=== PATIENT | male | born 2000 | race Caucasian/White ===

== ENCOUNTER 2021-03-02 15:21 | Emergency (ER) | payer OTHER ==
[~2021-03-02] VITALS: Ht 167.6 cm; Wt 94.3 kg
--- NOTE | 2021-03-02 15:55 | NUR ---
Triage call x1
[2021-03-02 16:07] VITALS: BP 133/79
--- NOTE | 2021-03-02 17:52 | NUR ---
Pt ambulated to Chair A.
[2021-03-02] MEDS ORDERED: KETOROLAC 30 MG/ML VIAL IM ONE (17:55)
--- NOTE | 2021-03-02 19:10 | NUR ---
results back and noted by lanny Cardozo and for d/c
[2021-03-02] MEDS ORDERED: NAPR-54 PO (19:21)
[2021-03-02 19:40] VITALS: BP 129/63
== END 2021-03-02 19:40 | disposition home or self-care (01) ==
LOC: MED 15:21
DX: S02.2XXA Fracture of nasal bones, initial encounter for closed fracture (principal); S02.401A Maxillary fracture, unspecified side, initial encounter for closed fracture; Z79.899 Other long term (current) drug therapy; Y04.2XXA Assault by strike against or bumped into by another person, initial encounter; Y93.89 Activity, other specified; Y92.89 Other specified places as the place of occurrence of the external cause; Y99.8 Other external cause status
CPT/HCPCS: 70160; 70486; 96372; 99284; J1885

== ENCOUNTER 2021-04-24 09:01 | Emergency (ER) | payer OTHER ==
[~2021-04-24] VITALS: Ht 167.6 cm; Wt 90.7 kg
[~2021-04-24 09:01] MED LIST: NAPR-54 PO
[2021-04-24 09:05] VITALS: BP 144/85
--- NOTE | 2021-04-24 09:20 | NUR ---
21 y/o M BIB self from home c/o nausea and abdominal pain +black tarry stools. Patient A&Ox4, ambulatory reports seen at [facility] yesterday and diagnosed with gastritis. Patient reports epigastric pain 8/10, burning/constant, non-radiating that worsens after eating meals. Patient states taking prescribed Zofran and Pepcid without relief to pain. Patient states Ibuprofen 3 days ago and Tylenol 1,500mg last night without relief. Patient states last BM: this morning, 1 episode of black tarry stool in which he called the nurse hotline who advised to go to ER for evaluation. Patient denies any pain medications today. Denies vomiting, chest pain, back pain, dysuria, urinary symptoms. Pt placed into a gown and UA collected. Bed locked in lowest position, side rails x 1, call light in reach. PMH: gastritis Meds: Zofran, pepcid NKA Sx: denies
--- NOTE | 2021-04-24 09:20 | NUR ---
Patient ambulated to bed 04 with steady/even gait.
[2021-04-24] MEDS ORDERED: ONDANSETRON 4 MG/2 ML VIAL IVP ONE (09:25)
[2021-04-24] MEDS ORDERED: ALUMINUM HYD/MAG/SIMETHICONE 30 ML UDC PO ONE (09:25)
[2021-04-24] MEDS ORDERED: FAMOTIDINE 20 MG/2 ML VIAL IVP ONE (09:25)
--- NOTE | 2021-04-24 09:29 | NUR ---
Dr. Plasencia is evaluating patient at bedside
--- NOTE | 2021-04-24 09:42 | NUR ---
Patient transported to [facility] by WC
--- NOTE | 2021-04-24 09:45 | NUR ---
Blood sample collected, walked to lab and handed to CPT. Chepe
--- NOTE | 2021-04-24 09:58 | NUR ---
Patient returned from RAD by WC
[2021-04-24 10:15] LABS: BASOPHILS % (AUTO) 0.8 % (0.0-2.0); EOSINOPHILS # (AUTO) 0.1 K/uL (0-0.4); EOSINOPHILS % (AUTO) 2.8 % (0.0-4.0); HEMATOCRIT 44.4 % (36-52); HEMOGLOBIN 15.2 g/dL (12.0-18.0); LYMPHOCYTES # (AUTO) 2.1 K/uL (2.0-11.5); LYMPHOCYTES % (AUTO) 42.2 % (20.5-51.1); MEAN CORPUSCULAR HEMOGLOBIN 29 pg (27-31); MEAN CORPUSCULAR HGB CONC 34 g/dL (33-37); MEAN CORPUSCULAR VOLUME 85.4 fL (80-94); MONOCYTES # (AUTO) 0.4 K/uL (0.8-1.0); MONOCYTES % (AUTO) 8.3 % (1.7-9.3); NEUTROPHILS # (AUTO) 2.3 K/uL (1.8-7.7); NEUTROPHILS % (AUTO) 45.9 % (42.2-75.2); PLATELET COUNT (AUTO) 245 K/uL (140-450); RED CELL DISTRIBUTION WIDTH 12.9 % (11.6-13.7)
[2021-04-24 10:30] LABS: ANION GAP 14.5 (8-16); CARBON DIOXIDE 26.6 mmol/L (21-32); POTASSIUM 4.1 mmol/L (3.5-5.1); TOTAL BILIRUBIN 0.6 mg/dL (0.0-1.0)
[2021-04-24 10:31] LABS: ALBUMIN 4.4 g/dL (3.4-5.0)
--- NOTE | 2021-04-24 10:42 | NUR ---
Dr. Plasencia reevaluating patient at bedside
--- NOTE | 2021-04-24 11:04 | NUR ---
Patient resting in position of comfort. States no nausea at this time; pain 7/10. All pt needs met. Significant other remains at bedside. VSS; respirations even/unlabored.
[2021-04-24 11:12] VITALS: BP 137/78
[2021-04-24] MEDS ORDERED: MAG355OR2 PO (11:37)
[2021-04-24] MEDS ORDERED: LOPE1TAB14 PO (11:37)
--- NOTE | 2021-04-24 11:47 | NUR ---
Patient discharged with v/s stable. Written and verbal after care instructions given and explained. Patient alert, oriented and verbalized understanding of instructions. Ambulatory with steady gait. All questions addressed prior to discharge. ID band removed. Patient advised to follow up with PMD. Rx of Maalox Maximum Strength Supsension, Imodium Multi-Symptom Rel Cplt given. Patient educated on indication of medication including possible reaction and side effects. Opportunity to ask questions provided and answered.
== END 2021-04-24 11:47 | disposition home or self-care (01) ==
LOC: MED 09:01
DX: R10.13 Epigastric pain (principal); R11.0 Nausea; R19.7 Diarrhea, unspecified
CPT/HCPCS: 36415; 74022; 80053; 83690; 85025; 96374; 96375; 99284; J2405; J3490

== ENCOUNTER 2021-08-12 09:30 | Emergency (ER) | payer OTHER ==
[~2021-08-12] VITALS: Ht 167.6 cm; Wt 90.7 kg
[~2021-08-12 09:30] MED LIST changes: +LOPE1TAB14 PO; +MAG355OR2 PO
[2021-08-12 10:10] VITALS: BP 123/74
[2021-08-12] MEDS ORDERED: KETOROLAC 60 MG/2 ML VIAL IM ONE (11:05)
[2021-08-12] MEDS ORDERED: ONDA8TAB87 PO (11:48)
[2021-08-12] MEDS ORDERED: IBUP-2213 PO (11:48)
--- NOTE | 2021-08-12 11:51 | NUR ---
21/M BIB SELF WITH C/O BLOOD IN STOOL THIS MORNING. PATIENT REPORTS INTERMITTENT ABDOMINAL PAIN "FOR YEARS" BUT STATES HE HAS NOT FOLLOWED UP WITH A GI DOCTOR. PATIENT C/O 7 PAIN THAT IS UNPROVOKED, REPORTS NAUSEA AND DIARRHEA. DENIES VOMITING, CP OR URINARY SYMPTOMS.
[2021-08-12 11:55] VITALS: BP 123/74
--- NOTE | 2021-08-12 11:55 | NUR ---
Patient discharged with v/s stable. Written and verbal after care instructions ABOUT IRRITABLE BOWEL SYNDROME given and explained. Patient alert, oriented and verbalized understanding of instructions. Ambulatory with steady gait. All questions addressed prior to discharge. ID band removed. Patient advised to follow up with PMD. Rx of IBUPROFEN AND ZOFRAN given. Patient educated on indication of medication including possible reaction and side effects. Opportunity to ask questions provided and answered.
== END 2021-08-12 11:52 | disposition home or self-care (01) ==
LOC: MED 09:30
DX: R10.30 Lower abdominal pain, unspecified (principal); R11.2 Nausea with vomiting, unspecified; R19.7 Diarrhea, unspecified; K62.5 Hemorrhage of anus and rectum; F12.90 Cannabis use, unspecified, uncomplicated; Z79.899 Other long term (current) drug therapy
CPT/HCPCS: 81002; 96372; 99283; J1885